=== PATIENT | female | born 1980 | race Caucasian/White ===

== ENCOUNTER 2016-12-25 08:55 | Outpatient (CLI) | payer MEDICAID ==
[2016-12-25] MEDS ORDERED: IV START KIT ONE (09:20)
[2016-12-25] MEDS ORDERED: LACTATED RINGERS 1,000 ML ONE (09:20)
[2016-12-25 09:37] VITALS: BMI 36.0
[2016-12-25] MEDS ORDERED: TERBUTALINE SULFATE 1 MG/ML VIAL IV ONE (09:38)
[2016-12-25] MEDS ORDERED: LACTATED RINGERS 1,000 ML IV SCH (09:45)
--- NOTE | 2016-12-25 18:49 | PDOC36 ---
Provider Note Subject: Date: December 25, 2016 Procedure: External cephalic version Indication for Procedure: Breech presentation Brief description: Pt is a 36 yo @ 38 wks with history of cesarian section x 1 and breech presentation who presents to [facility] for a scheduled external cephalic version. O: BP 115/69 HR 67 RR 18 T35.7 [place]: no ctxs FHTs: 140 baseline, moderate variability, +accels, -decels Procedure: The patient was monitored for approximately 30 minutes and had a reassuring heart tracing. Fully informed consent was obtained prior to the procedure with risks and benefits discussed including, but not limited to, ruptured amniotic fluid, bleeding, placental abruption, need for immediate cesarian section in case of distress and pain with the procedure. The patient understood the risks and benefits of the procedure and wished to proceed. Terbutaline 2.5mcg SQ were given prior to the procedure for uterine relaxation. Bedside ultrasound confirmed breech presentation with the head in the right upper quadrant. The patient was placed supine and gel was applied to the abdomen. Pressure was applied to the lower pelvis to lift the bottom parts and feet out of the pelvis. Gentle pressure was then applied to the head to attempt a forward roll in the counter-clockwise direction, however, the head did not move past the 9 o'clock position. I was not able to apply stronger pressure due to maternal discomfort. I attempted this maneuver 3 times with no success. I then attempted a backward roll by lifting the bottom parts and feet again out of the pelvis and applied gentle pressure to the head in a clockwise direction. The head moved toward the 3 o'clock position but no further. Again, I was not able to use more pressure due to maternal discomfort. The procedure was then aborted. Postprocedure monitoring continued to show a reassuring heart tracing. The patient was discharged to home after 30 minutes of post-procedure monitoring. She was scheduled for a repeat Cesarian section with bilateral tubal ligation on Monday01/02/[address] Cat.
== END 2016-12-25 10:45 | disposition home or self-care (01) ==
LOC: FBC 08:55 → FBCOUT 08:55 → FBC 08:56 → UNDOADMOB 08:56 → EDSTATUS 09:07 → FBCOUT 10:45
PROVIDERS: ATTEND Family Medicine
DX: O32.1XX0 Maternal care for breech presentation, not applicable or unspecified (principal); Z3A.38 38 weeks gestation of pregnancy
CPT/HCPCS: 96374; 96361; 59412; 59025; 76815; J3105; J7120

== ENCOUNTER 2017-01-02 05:32 | Inpatient (IN) | payer MEDICAID ==
[2017-01-02] MEDS ORDERED: LACTATED RINGERS 1,000 ML IV SCH (05:45)
[2017-01-02] MEDS ORDERED: CEFAZOLIN SODIUM 2 GRAM DUPLEX 2 G in Premix (D5W) 50 ml 1 EACH IV PRN (05:45)
[2017-01-02] MEDS ORDERED: IV START KIT ONE (05:54)
[2017-01-02] MEDS ORDERED: LACTATED RINGERS 1,000 ML ONE (05:54)
[2017-01-02] MEDS ORDERED: SODIUM CHLORIDE 0.9% FLUSH 10 ML ONE (05:56)
[2017-01-02] MEDS ORDERED: CEFAZOLIN SODIUM 2 GRAM DUPLEX 50 ML IV ONE (05:57)
[2017-01-02 06:09] LABS: HEMOGLOBIN 10.5 gm/l (12.0-16.0); MEAN CELL VOLUME 88.8 fl (81.0-99.0); MEAN CORPUSCULAR HEMOGLOBIN 30.1 pg (27.0-31.0); MEAN CORPUSCULAR HGB CONC 33.9 g/dl (33.0-37.0); RED CELL DISTRIBUTION WIDTH 13.9 % (11.5-14.5)
[2017-01-02 06:26] VITALS: BMI 33.0
[2017-01-02] MEDS ORDERED: MORPHINE SULFATE (DURAMORPH) 1 MG/ML 10ML AMP ONE (07:17)
[2017-01-02] MEDS ORDERED: BUPIVACAINE 0.75% SPINAL AMPUL 2 ML ONE (07:32)
[2017-01-02] MEDS ORDERED: SPINAL PROCEDURAL TRAY 1 EACH ONE (07:32)
[2017-01-02] MEDS ORDERED: EPHEDRINE SULFATE UD SYR 25 MG 25 MG/5 ML SYRINGE IV ONE (07:33)
[2017-01-02] MEDS ORDERED: GLYCOPYRROLATE 0.2 MG/ML 1ML VIAL ONE (07:48)
[2017-01-02] MEDS ORDERED: OXYTOCIN 10 UNITS/ML VIAL ONE (08:00)
[2017-01-02] MEDS ORDERED: LANOLIN 50 APPLIC/7G TUBE TP PRN (08:50)
[2017-01-02] MEDS ORDERED: DIPHENHYDRAMINE HCL 25 MG CAPSULE PO PRN (08:50)
[2017-01-02] MEDS ORDERED: ONDANSETRON 4 MG/2ML 2 ML VIAL IV PRN (08:50)
[2017-01-02] MEDS ORDERED: DIPHENHYDRAMINE HCL 50 MG/1 ML VIAL IV PRN (08:50)
--- NOTE | 2017-01-02 08:59 | PDOC37 ---
Procedure: Repeat Section and bilateral tubal ligation Date of Procedure: 01/02/17 Start Time: see anesthesia note Preoperative Diagnosis: 1. 39 week intrauterine . 2. Breech 3. Multiparity, undesired fertility 4. Advanced maternal age Postoperative Diagnosis: Same Surgeon: Emmie Cat MD Assist: Cassandra Bajwa MD Indication for Procedure: 36 year old, at 39 weeks 1 days with history of section x 1 and breech presentation. Patient had attempted ECV which was unsuccessful. She has a history of x 5. She was scheduled for repeat section and also desired bilateral tubal ligation. Anesthesia: Spinal with Rina Guan CRNA Complications: None Estimated Blood Loss: 400 mLs IV Fluids: 1200 mLs of LR Medications: 2 gm of Ancef for routine prophylaxis. 20 units of Pitocin. Urine Output: 100 mLs of clear urine Findings: Fluid clear. Normal uterus, ovaries, and tubes. Krishan Breech, female infant, apgars 9/9, weight 6 lbs 14 oz (3130 gm) Procedure: The patient was taken to the operating room where spinal anesthesia was found to be adequate. She was then prepared and draped in the normal sterile fashion in the dorsal supine position with a leftward tilt. A timeout was performed. A Pfannensteil skin incision was then made with the scalpel and carried through to the underlying layer of fascia with the scalpel. The fascia was incised in the midline and the incision extended laterally with the Scott scissors. The superior aspect of the fascial incision was then grasped with the Nava clamps, elevated, and the underlying rectus muscles dissected off bluntly and sharply where needed. Attention was then turned to the inferior aspect of the incision which, in a similar fashion, was grasped, tented up with the Nava clamps, and the rectus muscle dissected off bluntly and sharply with Scott scissors. The rectus muscles were then in the midline, and the peritoneum was identified and entered bluntly. The peritoneal incision was then extended with good visualization of the bladder. The Jesus Manuel O retractor was then inserted and the vesicouterine peritoneum identified, grasped with pick- ups and entered sharply with the Metzenbaum scissors. The incision was then extended laterally and the bladder flap created digitally. The lower uterine segment incised in a transverse fashion with the scalpel. The uterine incision was then extended laterally by pulling superolaterally on both sides. Membranes were ruptured and fluid was clear. The breech was then delivered by grabbing the infant's hips. The infant was rotated and the right arm was delivered by flexing it in front of the 's body. The was rotated again and the left arm was swept in front of the infant's body. While maintaining flexion of the neck, the head was delivered atraumatically. The was vigorous with spontaneous cry. The nose and mouth were suctioned with bulb suction and the cord was clamped and cut after more than a 1 minute delay. The infant was handed off to the waiting staff pharmacist hospital. The placenta was then delivered with gentle cord traction. The uterus was then exteriorized and cleared of all clots and debris. The uterine incision was repaired with 0 vicryl in a running, locked fashion. A second layer of the same suture was used in an imbricating fashion to obtain excellent hemostasis. Bilateral tubal ligation: Attention was then turned to the patient's bilateral tubal ligation. A Anthony was used to shredder picker the left fallopian tube and a Modified Annette-type of tubal ligation was performed using 0 plain gut suture, ligating each tube twice. The midportion was then excised and submitted for pathology. The same procedure was done on the opposite side. Hemostasis of stumps was excellent. The gutters were cleared of all clots. The uterus was returned to the abdomen. The Jesus Manuel O retractor was removed. The peritoneum was closed with 2-0 Vicryl. The fascia was reapproximated with 0 Vicryl in a running fashion. The subcutaneous tissue was reapproximated with 2-0 Plain gut. The skin was closed with 4-0 Vicryl. The patient tolerated the procedure well. Sponge, lap and needle counts were correct times three. A debriefing was held at the end of the procedure with anesthesia and nursing staff. The patient was taken to the recovery room in stable condition.
[2017-01-02] MEDS: KETOROLAC TROMETHAMINE 30 MG/ML 1 ML VIAL IV PRN ×2 (11:08→17:46)
[2017-01-02] MEDS: LACTATED RINGERS 1,000 ML IV SCH ×2 (15:21→23:25)
[2017-01-02] MEDS: OXYCODONE/ACETAMINOPHEN 5/325 MG TABLET PO PRN (19:11)
[2017-01-02] MEDS: FERROUS SULFATE (65 Fe) 325 MG TABLET PO SCH (19:24)
[2017-01-02] MEDS: DOCUSATE SODIUM 100 MG CAPSULE PO SCH ×2 (19:24→23:21)
[2017-01-02] MEDS: IBUPROFEN 800 MG TABLET PO SCH ×3 (19:25→23:24)
[2017-01-02] MEDS: PRENATAL VIT/FE FUMARATE/FA 1 TABLET PO SCH (19:25)
[2017-01-03] MEDS: OXYCODONE/ACETAMINOPHEN 5/325 MG TABLET PO PRN ×4 (04:02→22:32)
[2017-01-03] MEDS: LACTATED RINGERS 1,000 ML IV SCH ×3 (04:22→18:01)
[2017-01-03] MEDS: IBUPROFEN 800 MG TABLET PO SCH ×6 (04:23→22:28)
[2017-01-03 06:42] LABS: HEMATOCRIT 29.7 % (37.0-47.0); HEMOGLOBIN 10.1 gm/l (12.0-16.0)
--- NOTE | 2017-01-03 10:13 | PDOC44 ---
- Subjective Day: 1 Reports Pain Tolerable - Objective Temp Pulse Resp BP Pulse Ox 98.7 F 81 16 110/64 01/03/17 08:11 01/03/17 08:11 01/03/17 08:11 01/03/17 08:11 Lab Results 01/03/17 06:10 Hgb 10.1 L Hct 29.7 L Current Medications Generic Name Dose Route Start Last Admin Trade Name Freq PRN Reason Stop Dose Admin Diphenhydramine HCl 25 - 50 mg 01/02/17 08:50 Benadryl PO Q6H PRN Itching (Mild/Moderate) Diphenhydramine HCl 25 - 50 mg 01/02/17 08:50 01/02/17 10:37 Benadryl IV 50 mg Q6H PRN Administration Itching (Severe) Docusate Sodium 100 mg 01/02/17 09:00 01/02/17 23:21 Colace PO Not Given BID [facility] Emollient Ointment 1 applic 01/02/17 08:50 [id number] TP PRN PRN sore nipples Ferrous Sulfate 325 mg 01/02/17 09:00 01/02/17 19:24 Ferrous Sulfate PO Not Given DAILY [facility] Lactated Ringer's 1,000 mls @ 125 mls/hr 01/02/17 09:00 01/03/17 04:22 Lactated Ringers IV Not Given .Q8H [facility] Ibuprofen 800 mg 01/02/17 09:00 01/03/17 05:24 Motrin PO 800 mg Q6H NEIL Administration Ketorolac Tromethamine 30 mg 01/02/17 08:50 01/02/17 17:46 Toradol IV 30 mg Q6H PRN Administration Pain (Mild/Moderate) Multivi/Iron Carb/Fe Sulf/FA/Prenat 1 tab 01/02/17 09:00 01/02/17 19:25 Plus PO Not Given DAILY [facility] Ondansetron HCl 4 mg 01/02/17 08:50 Zofran IV Q6H PRN Nausea/Vomiting Oxycodone/Acetaminophen 1 - 2 tab 01/02/17 08:50 01/03/17 04:02 Percocet 5/325 PO 1 tab Q4H PRN Administration Pain (Moderate) Sodium Chloride 10 ml 01/02/17 08:50 01/02/17 23:23 Normal Saline 10ml Flush IV 10 ml PRN PRN Administration IV Flush Sodium Chloride 10 ml 01/02/17 09:00 01/03/17 08:39 Normal Saline 10ml Flush IV 10 ml Q8HR NEIL Administration - Physical Exam General: Afebrile Psych/Mental Status: Bonding Well Neurological: Oriented x 4 Lungs: Clear to Auscultation Bilaterally Cardiovascular: Regular Rate and Rhythm Fundus: Firm, Below Umbilicus Wound SUBWAY OPERATOR: Well Approximated - Problems:Assessment/Plan (1) Delivery by section of full-term Status: AcuteAssessment/Plan: Doing well Normal exam Encourage breast feeding Continue routine care
[2017-01-03] MEDS: PRENATAL VIT/FE FUMARATE/FA 1 TABLET PO SCH (10:23)
[2017-01-03] MEDS: FERROUS SULFATE (65 Fe) 325 MG TABLET PO SCH (10:23)
[2017-01-03] MEDS: DOCUSATE SODIUM 100 MG CAPSULE PO SCH ×2 (10:23→22:32)
[2017-01-04] MEDS: IBUPROFEN 800 MG TABLET PO SCH ×5 (00:20→22:59)
[2017-01-04] MEDS: OXYCODONE/ACETAMINOPHEN 5/325 MG TABLET PO PRN ×3 (02:21→17:16)
[2017-01-04] MEDS: LACTATED RINGERS 1,000 ML IV SCH ×3 (04:20→18:29)
[2017-01-04] MEDS: DOCUSATE SODIUM 100 MG CAPSULE PO SCH ×2 (09:27→22:59)
[2017-01-04] MEDS: PRENATAL VIT/FE FUMARATE/FA 1 TABLET PO SCH (09:27)
[2017-01-04] MEDS: FERROUS SULFATE (65 Fe) 325 MG TABLET PO SCH (09:27)
--- NOTE | 2017-01-04 11:03 | PDOC44 ---
- Subjective Day: 2 (POD#2 s/p rLTCS w BTL, for breech) Doing well. Able to ambulate, void. No fever, chills, CP, SOB or leg pain. Reports Flatus, Reports Pain Tolerable, Reports , Reports Tolerating Regular Diet, Denies Nausea, Denies Vomiting - Objective Temp Pulse Resp BP Pulse Ox 98.4 F 73 16 112/59 01/04/17 07:40 01/04/17 07:40 01/04/17 07:40 01/04/17 07:40 Current Medications Generic Name Dose Route Start Last Admin Trade Name Freq PRN Reason Stop Dose Admin Diphenhydramine HCl 25 - 50 mg 01/02/17 08:50 Benadryl PO Q6H PRN Itching (Mild/Moderate) Diphenhydramine HCl 25 - 50 mg 01/02/17 08:50 01/02/17 10:37 Benadryl IV 50 mg Q6H PRN Administration Itching (Severe) Docusate Sodium 100 mg 01/02/17 09:00 01/04/17 09:27 Colace PO 100 mg BID NEIL Administration Emollient Ointment 1 applic 01/02/17 08:50 [id number]-[id number]-Oyhpld TP PRN PRN sore nipples Ferrous Sulfate 325 mg 01/02/17 09:00 01/04/17 09:27 Ferrous Sulfate PO 325 mg DAILY NEIL Administration Lactated Ringer's 1,000 mls @ 125 mls/hr 01/02/17 09:00 01/04/17 10:45 Lactated Ringers IV Not Given .Q8H NEIL Ibuprofen 800 mg 01/02/17 09:00 01/04/17 06:16 Motrin PO 800 mg Q6H NEIL Administration Ketorolac Tromethamine 30 mg 01/02/17 08:50 01/02/17 17:46 Toradol IV 30 mg Q6H PRN Administration Pain (Mild/Moderate) Multivi/Iron Carb/Fe Sulf/FA/Prenat 1 tab 01/02/17 09:00 01/04/17 09:27 Plus PO 1 tab DAILY NEIL Administration Ondansetron HCl 4 mg 01/02/17 08:50 Zofran IV Q6H PRN Nausea/Vomiting Oxycodone/Acetaminophen 1 - 2 tab 01/02/17 08:50 01/04/17 07:56 Percocet 5/325 PO 2 tab Q4H PRN Administration Pain (Moderate) Sodium Chloride 10 ml 01/02/17 08:50 01/02/17 23:23 Normal Saline 10ml Flush IV 10 ml PRN PRN Administration IV Flush Sodium Chloride 10 ml 01/02/17 09:00 01/04/17 10:46 Normal Saline 10ml Flush IV Not Given Q8HR NEIL - Physical Exam General: Afebrile, No Acute Distress Psych/Mental Status: Mood/Affect Appropriate, Judgment/Insight Intact, Bonding Well Neurological: Grossly Intact, Alert, Normal Speech HEENT: Atraumatic, Mucous membr. moist/pink Lungs: Clear to Auscultation Bilaterally Cardiovascular: Regular Rate and Rhythm Breast: Soft Fundus: Firm, Midline, Below Umbilicus Abdomen: Normal Bowel Sounds Extremities: No Edema Wound CHILDREN'S COUNSELOR: Well Approximated (c/d/i) - Problems:Assessment/Plan (1) Delivery by section of full-term infant Status: AcuteAssessment/Plan: Doing well POD#2 Normal exam Support breast feeding Continue routine care Disposition: Stable, Anticipate DC Home Tomorrow
[2017-01-05] MEDS: IBUPROFEN 800 MG TABLET PO SCH ×2 (04:46→11:19)
[2017-01-05] MEDS: OXYCODONE/ACETAMINOPHEN 5/325 MG TABLET PO PRN ×2 (04:46→11:19)
[2017-01-05] MEDS: FERROUS SULFATE (65 Fe) 325 MG TABLET PO SCH (08:31)
[2017-01-05] MEDS: DOCUSATE SODIUM 100 MG CAPSULE PO SCH (08:31)
[2017-01-05] MEDS: PRENATAL VIT/FE FUMARATE/FA 1 TABLET PO SCH (08:31)
[2017-01-05 08:33] VITALS: BP 112/58
--- NOTE | 2017-01-05 09:33 | PDOC39B ---
Hospital Course: ADMIT DATE: 01/02/17 DISCHARGE DATE: 01/05/17 ADMISSION DIAGNOSES: Scheduled repeat section and Bilateral tubal ligation, Breech presentation, Advanced maternal age PROCEDURES: Repeat section and bilateral tubal ligation HISTORY OF PRESENT ILLNESS: 36 year old G8 T6 L6 at 39 weeks 1 days presenting with scheduled repeat section and bilateral tubal ligation. Fetus also in breech presentation. She underwent attempted external cephalic version which was unsuccessful. HOSPITAL COURSE: The patient was admitted for scheduled repeat section and bilateral tubal ligation. She underwent this procedure with no complications. She delivered a viable female , apgars 9/9. Her period was uncomplicated. By post operative day 1 she was ambulating, pain was controlled on PO pain meds. She was tolerating PO and voiding on her own. By day of discharge the patient is ambulating, eating, voiding, and passing flatus without difficulty. Pain is controlled and lochia is appropriate. She is . - Physical Exam Vital Signs: Temp Pulse Resp BP Pulse Ox 98.5 F 76 18 112/58 01/05/17 08:31 01/05/17 08:31 01/05/17 08:31 01/05/17 08:31 General: Afebrile, No Acute Distress Psych/Mental Status: Bonding Well Neurological: Alert, Normal Speech Lungs: Clear to Auscultation Bilaterally, Normal Air Movement Cardiovascular: Regular Rate and Rhythm, Normal S1, Normal S2 Fundus: Firm, Midline Extremities: Full ROM, No Edema Skin: Normal Color, Warm, Dry, Intact, No Rash Wound: Well Approximated, No Drainage, No Erythema - Discharge Diagnosis (1) Delivery by section of full-term infant Status: AcuteAssessment/Plan: Doing well POD#3 Normal exam Support breast feeding Stable for discharge today - Discharge Plan Condition: Good Disposition: Home Prescriptions: Docusate Sodium [COLACE 100 MG CAPSULE (SHF)] 100 mg PO BID PRN #60 PRN Reason: Constipation Ibuprofen [IBUPROFEN 800 MG TABLET (SHF)] 800 mg PO Q6H PRN #40 PRN Reason: Pain (Mild) Oxycodone HCl/Acetaminophen [PERCOCET 5/325 MG TABLET (SHF)] 1 - 2 tab PO Q4H PRN #40 PRN Reason: Pain (Moderate) Follow-Up: Emmie Cat MD [Staff Physician] - In 6 weeks
== END 2017-01-05 12:09 | disposition home or self-care (01) | DRG 766 ==
LOC: FBC 05:32 → EDSTATUS 01-08 05:29
PROVIDERS: ADMIT Family Medicine; ATTEND Family Medicine
PROC: 10D00Z1 Extraction of Products of Conception, Low, Open Approach (ICD-10-PCS; principal; 2017-01-02)
PROC: 0UL70ZZ Occlusion of Bilateral Fallopian Tubes, Open Approach (ICD-10-PCS; 2017-01-02)
DX: O32.1XX0 Maternal care for breech presentation, not applicable or unspecified (principal); Z3A.39 39 weeks gestation of pregnancy; Z37.0 Single live birth; O09.43 Supervision of pregnancy with grand multiparity, third trimester; O09.523 Supervision of elderly multigravida, third trimester; Z30.2 Encounter for sterilization